=== PATIENT | female | born 1980 | race American Indian/Alaskan Native ===

== ENCOUNTER 2017-05-31 05:05 | Emergency (ER) | payer SELFPAY ==
[2017-05-31 06:13] LABS: Basophils % (Auto) 0.7 % (0.0-1.8); Eosinophils % (Auto) 0.1 % (0.0-4.3); Hematocrit 50.6 % (30.3-42.9); Hemoglobin 17.1 gm/dl (10.1-14.3); Mean Corpuscular HGB Conc 34 % (30-34); Mean Corpuscular Hemoglobin 28 pg (28-32); Mean Corpuscular Volume 84 fl (79-97); Platelet Count 419 K/mm3 (140-440); Red Blood Count 6.02 M/mm3 (3.65-5.03); Red Cell Distribution Width 14.8 % (13.2-15.2); White Blood Count 12.8 K/mm3 (4.5-11.0)
[2017-05-31 06:22] LABS: Alanine Aminotransferase 19 units/L (7-56); Albumin 5.1 g/dL (3.9-5); Albumin/Globulin Ratio 1.1 %; Alkaline Phosphatase 88 units/L (35-129); Anion Gap 25 mmol/L; BUN/Creatinine Ratio 25.55; Blood Urea Nitrogen 23 mg/dL (7-17); Calcium 10.7 mg/dL (8.4-10.2); Carbon Dioxide 26 mmol/L (22-30); Chloride 95.4 mmol/L (98-107); Glucose 110 mg/dL (65-100); Lipase 12 units/L (13-60); Potassium 3.3 mmol/L (3.6-5.0); Sodium 143 mmol/L (137-145); Total Protein 9.7 g/dL (6.3-8.2)
[2017-05-31] MEDS ORDERED: REGLAN IV ONE ×2 (07:06→10:39)
[2017-05-31] MEDS ORDERED: NACL 0.9% 1000 ML 1,000 ML IV ONE ×2 (07:06→07:53)
[2017-05-31 07:11] LABS: Bacteria,Urine 2+ /HPF (Negative); Bilirubin,Urine NEG (Negative); Blood,Urine LG (Negative); Ketones,Urine 20 mg/dL (Negative); Leukocyte Esterase,Urine NEG (Negative); Mucus,Urine 3+ /HPF; Nitrite,Urine NEG (Negative); Urobilinogen,Urine < 2.0 mg/dL (<2.0)
--- NOTE | 2017-05-31 07:13 | Emergency Department Report ---
ED General Adult HPI - General Chief complaint: Abdominal Pain Stated complaint: NAUSEA/VOMITING/STOMACH PAIN Time Seen by Provider: 05/31/17 07:05 Source: patient Mode of arrival: Ambulatory Limitations: No Limitations - History of Present Illness Initial comments: Patient is a 37-year-old female past medical history of colitis. She presents with abdominal pain that has been going on for the last 3 days. Her abdominal pains located in left upper quadrant. She states that it is an 8 out of 10 and radiates to her left flank area and the abdominal pain is associated with nausea and vomiting. She's had about 2 vomiting episodes of vomiting has been nonbloody nonbilious. She states that this upon pains different from the previous of bowel pain she's had before. Patient denies having any dysuria or vaginal discharge. - Related Data Previous Rx's Medication Instructions Recorded Last Taken Type Metoclopramide HCl [Reglan TAB] 5 mg PO Q8HR PRN #15 tablet 05/31/17 Unknown Rx Naproxen [Naprosyn] 375 mg PO BID #20 tablet 05/31/17 Unknown Rx Sulfamethoxazole/Trimethoprim 1 tab PO BID #10 tab 05/31/17 Unknown Rx [Bactrim 400-80 mg] Allergies Allergy/AdvReac Type Severity Reaction Status Date / Time ondansetron HCl Allergy Unknown Verified 05/31/17 05:34 [From Zofran (as hydrochloride)] ED Review of Systems ROS: Stated complaint: NAUSEA/VOMITING/STOMACH PAIN Other details as noted in HPI Constitutional: denies: chills, fever Eyes: denies: eye pain, eye discharge, vision change ENT: denies: ear pain, throat pain Respiratory: denies: cough, shortness of breath, wheezing Cardiovascular: denies: chest pain, palpitations Endocrine: no symptoms reported Gastrointestinal: abdominal pain, nausea, vomiting. denies: diarrhea Genitourinary: denies: urgency, dysuria, discharge Musculoskeletal: denies: back pain, joint swelling, arthralgia Skin: denies: rash, lesions Neurological: denies: headache, weakness, paresthesias Psychiatric: denies: anxiety, depression Hematological/Lymphatic: denies: easy bleeding, easy bruising ED Past Medical Hx - Past Medical History Previous Medical History?: Yes Hx Hypertension: Yes Hx Seizures: Yes Additional medical history: cerebral aneurysm - Surgical History Past Surgical History?: No - Social History Smoking Status: Current Every Day Smoker Substance Use Type: Alcohol - Medications Home Medications: Home Medications Medication Instructions Recorded Confirmed Last Taken Type Metoclopramide HCl [Reglan TAB] 5 mg PO Q8HR PRN #15 tablet 05/31/17 Unknown Rx Naproxen [Naprosyn] 375 mg PO BID #20 tablet 05/31/17 Unknown Rx Sulfamethoxazole/Trimethoprim 1 tab PO BID #10 tab 05/31/17 Unknown Rx [Bactrim 400-80 mg] ED Physical Exam - General Limitations: No Limitations General appearance: alert, in no apparent distress - Head Head exam: Present: atraumatic, normocephalic - Eye Eye exam: Present: normal appearance - ENT ENT exam: Present: mucous membranes moist - Neck Neck exam: Present: normal inspection - Respiratory Respiratory exam: Present: normal lung sounds bilaterally. Absent: respiratory distress - Cardiovascular Cardiovascular Exam: Present: regular rate, normal rhythm. Absent: systolic murmur, diastolic murmur, rubs, gallop - GI/Abdominal GI/Abdominal exam: Present: tenderness - Extremities Exam Extremities exam: Present: normal inspection - Back Exam Back exam: Present: CVA tenderness (L) - Neurological Exam Neurological exam: Present: alert, oriented X3 - Psychiatric Psychiatric exam: Present: normal affect, normal mood - Skin Skin exam: Present: warm, dry, intact, normal color. Absent: rash ED Course Vital Signs 05/31/17 05/31/17 05:35 12:25 Temperature 97.8 F Pulse Rate 117 H 88 Respiratory 16 16 Rate Blood Pressure 160/102 Blood Pressure 142/78 [Left] O2 Sat by Pulse 99 Oximetry - Reevaluation(s) Reevaluation #1: 05/31/17 08:47 Evaluate the patient hold her CT abdomen of her relative for IV analgesic medication. ED Medical Decision Making - Lab Data Result diagrams: 05/31/17 05:44 05/31/17 05:44 Laboratory Results - last 24 hr 05/31/17 05/31/17 05/31/17 05:44 05:44 06:37 WBC 12.8 H RBC 6.02 H Hgb 17.1 H Hct 50.6 H MCV 84 MCH 28 MCHC 34 RDW 14.8 Plt Count 419 Lymph % (Auto) 24.7 [place] % (Auto) 7.2 Eos % (Auto) 0.1 Baso % (Auto) 0.7 Lymph # 3.2 [place] # 0.9 H Eos # 0.0 Baso # 0.1 Seg Neutrophils % 67.3 Seg Neutrophils # 8.6 H Sodium 143 Potassium 3.3 L Chloride 95.4 L Carbon Dioxide 26 Anion Gap 25 BUN 23 H Creatinine 0.9 Estimated GFR > 60 BUN/Creatinine Ratio 25.55 Glucose 110 H Calcium 10.7 H Total Bilirubin 0.60 AST 16 ALT 19 Alkaline Phosphatase 88 Total Protein 9.7 H Albumin 5.1 H Albumin/Globulin Ratio 1.1 Lipase 12 L Urine Color Michelle Urine Turbidity Slightly-cloudy Urine pH 5.0 Ur Specific [place] 1.024 Urine Protein >500 Urine Glucose (UA) 50 Urine Ketones 20 Urine Blood Lg Urine Nitrite Neg Urine Bilirubin Neg Urine Urobilinogen < 2.0 Ur Leukocyte Esterase Neg Urine WBC (Auto) 19.0 H Urine RBC (Auto) 33.0 U Epithel Cells (Auto) 10.0 Urine Bacteria (Auto) 2+ Urine Mucus 3+ - Radiology Data Radiology results: report reviewed, image reviewed CT abdomen: Shows some signs of enteritis and fibroid uterus. - Medical Decision Making Chief medical diagnosis: Pancreatitis Differential medical diagnosis: Cholelithiasis, pyelonephritis, UTI IV MORPHINE, CBC, BMP, IV fluids I'll order CT scan of abdomen and then I'll reassess patient. CT scan shows signs of enteritis and fibroid uterus patient states that her pain is a lot better I will give patient another dose of IV Reglan and I will send patient home with Reglan and naproxen to take. Critical care attestation.: If time is entered above; I have spent that time in minutes in the direct care of this critically ill patient, excluding procedure time. ED Disposition Clinical Impression: Abdominal pain Qualifiers: Abdominal location: left upper quadrant Qualified Code(s): R10.12 - Left upper quadrant pain Urinary tract infection Qualifiers: Urinary tract infection type: acute cystitis Hematuria presence: without hematuria Qualified Code(s): N30.00 - Acute cystitis without hematuria Disposition: TO HOME OR SELFCARE Is pt being admited?: No Does the pt Need Aspirin: No Condition: Stable Instructions: Uterine Fibroids (ED), Abdominal Pain (ED) Prescriptions: Metoclopramide HCl [Reglan TAB] 5 mg PO Q8HR PRN #15 tablet PRN Reason: Nausea Naproxen [Naprosyn] 375 mg PO BID #20 tablet Sulfamethoxazole/Trimethoprim [Bactrim 400-80 mg] 1 tab PO BID #10 tab Referrals: PRIMARY CARE, [Primary Care Provider] - 3-5 Days
[2017-05-31 07:20] LABS: Protein,Urine >500 mg/dL (Negative)
[2017-05-31] MEDS ORDERED: MORPHINE IV ONE (07:52)
[2017-05-31] MEDS ORDERED: NACL ONE (08:22)
--- NOTE | 2017-05-31 08:57 | Cat Scan Report ---
CT scan of abdomen and pelvis with IV contrast: History: Left upper quadrant pain and left flank pain. Findings: Normal lung bases. No pleural pericardial effusion. Normal liver spleen pancreas and gallbladder. Thickening of the antral wall may be related to peptic disease. Normal adrenals, kidneys and bladder. No free intraperitoneal fluid. No evidence of adenopathy. Gaseous colon with small volume stool in colon. No bowel distention. Few fluid filled loops of small bowel without wall thickening or distention. Predominantly seen in the pelvis. Impression: Thickening of the antral wall may related to peptic disease. Fluid filled loops of small bowel are nonspecific and may represent early enteritis. Suspected fibroid uterus.
[2017-05-31 12:25] VITALS: BP 142/78
== END 2017-05-31 12:26 | disposition home or self-care (01) ==
LOC: ED 05:05
DX: N39.0 Urinary tract infection, site not specified (principal); I10 Essential (primary) hypertension; F17.210 Nicotine dependence, cigarettes, uncomplicated; Z88.6 Allergy status to analgesic agent
CPT/HCPCS: 36415; 74177; 80053; 81001; 83690; 85025; 96361; 96374; 96375; 96376; 99284; J2270; J2765; J7030; Q9967

== ENCOUNTER 2021-03-23 06:24 | Emergency (ER) | payer SELFPAY ==
[2021-03-23] MEDS ORDERED: ASPIRIN 325 MG TAB PO ONE (06:46)
--- NOTE | 2021-03-23 08:07 | XRay Report ---
CHEST 2 VIEWS INDICATION: chest pain. COMPARISON: None FINDINGS: Support devices: None. Heart: Within normal limits. Lungs/pleura: The lungs are hyperinflated versus good inspiration. No acute air space or interstitial disease. No pneumothorax. Additional findings: None. IMPRESSION: No acute findings. Mild hyperinflation. Signer Name: Raul Naqvi Jr, MD Signed: 03/23/2021 8:03 AM Workstation Name: [id number]
[2021-03-23 08:16] LABS: Basophils % (Auto) 0.5 % (0.0-1.8); Eosinophils % (Auto) 0.1 % (0.0-4.3); Hematocrit 48.5 % (30.3-42.9); Hemoglobin 16.4 gm/dl (10.1-14.3); Lymphocytes # (Auto) 2.3 K/mm3 (1.2-5.4); Lymphocytes % (Auto) 27.1 % (13.4-35.0); Mean Corpuscular HGB Conc 34 % (30-34); Mean Corpuscular Volume 88 fl (79-97); Monocytes # (Auto) 0.7 K/mm3 (0.0-0.8); Monocytes % (Auto) 8.4 % (0.0-7.3); Platelet Count 394 K/mm3 (140-440); Red Blood Count 5.54 M/mm3 (3.65-5.03)
[2021-03-23 08:31] LABS: Alanine Aminotransferase 17 units/L (7-56); Albumin 5.2 g/dL (3.9-5); Blood Urea Nitrogen 18 mg/dL (7-17); Hemolysis Index 18
[2021-03-23 08:37] LABS: BUN/Creatinine Ratio 30
[2021-03-23 10:31] VITALS: BP 127/91
[2021-03-23] MEDS ORDERED: SODIUM CHLORIDE 0.9% 1000 ML 1,000 ML IV ONE (10:44)
--- NOTE | 2021-03-23 10:44 | Event Note ---
ED Screening Note Date of service: 03/23/21 Time: 10:42 ED Screening Note: 40-year-old female patient with history of cerebral aneurysm, hypertension, and seizure disorder presents to the emergency department with complaints of right- sided headache, right-sided chest pain, and right-sided abdominal pain with associated nausea and vomiting starting 2 days ago. Patient states that headache and vomiting preceded the onset of chest pain. Takes Keppra for seizures but has been unable to keep down any medications. Estimates over 20 episodes of nonbloody emesis in the last 24 hours. Tachycardic in triage. General: Awake, appropriately interactive. Appears uncomfortable. Neck: Supple. Full range of motion intact. Cardiovascular: Normal peripheral perfusion. Pulmonary: No respiratory distress. Patient is speaking normally without use of accessory muscles. Skin: No apparent rashes or lesions. Neurological: Generalized weakness. No facial asymmetry. Speech is clear. Follows commands. Patient is alert and oriented. Musculoskeletal: Moves all four extremities spontaneously with normal range of motion. Psych: Cooperative. Appropriate mood and affect. I have greeted and performed a focused rapid initial assessment of this patient. A comprehensive ED assessment and evaluation of the patient, analysis of all test results, and completion of the medical decision-making process will be conducted by additional ED providers. This initial assessment/diagnostic orders/clinical plan/treatment(s) is/are subject to change based on patients health status, clinical progression and re-assessment. Further treatment and workup at subsequent clinical provider's discretion. Patient/guardian urged not to elope from the ED as their condition may be serious if not clinically assessed and managed.
[2021-03-23] MEDS ORDERED: levETIRAcetam 500 MG/5 ML ORAL LIQD PO ONE (11:50)
[2021-03-23] MEDS ORDERED: amLODIPine 5 MG TAB PO ONE (11:50)
[2021-03-23] MEDS ORDERED: METOCLOPRAMIDE 10 MG TAB PO ONE (11:51)
[2021-03-23] MEDS ORDERED: KETOROLAC 30 MG/1 ML INJ IV ONE (12:18)
--- NOTE | 2021-03-23 12:37 | Emergency Department Report ---
ED Abdominal Pain HPI - General Chief Complaint: Chest Pain Stated Complaint: CHEST PAIN/EMESIS PUI?: No Time Seen by Provider: 03/23/21 11:44 Source: patient Mode of arrival: Ambulatory Limitations: No Limitations - History of Present Illness Initial Comments: Patient is a 40-year-old female that comes to the emergency room today with nausea and vomiting. She states she has vomited so hard it makes her right side hurt. Patient states that she has heavy menses that makes her vomit. She states that she ended up in the ER last month for the same thing. She was at [facility]. They told her she had cyclical vomiting. On arrival patient states that she has had so much vomiting she has not been able to take her Keppra and she is concerned because this is happened in the past and she is had a seizure. She also did not take her blood pressure medicine. Patient states that she is on her menses.. She has cramping. She has no back pain. No dysuria. No vaginal discharge. No fever or chills. Patient denies headache on exam. Patient not actively vomiting on arrival to [facility]. MD Complaint: other -: Gradual, days(s) Location: suprapubic (Which makes her vomit and then she has worsening generalized pain) Radiation: none Migration to: no migration Quality: cramping Consistency: constant Improves With: nothing Worsens With: nothing Associated Symptoms: denies other symptoms, nausea, vomiting. denies: diarrhea, fever, chills, constipation, dysuria, hematemesis, hematochezia, melena, hematuria, anorexia, syncope - Related Data LMP (females 10-50): this week Previous Rx's Medication Instructions Recorded Last Taken Type Metoclopramide HCl [Reglan TAB] 5 mg PO Q8HR PRN #15 tablet 03/23/21 Unknown Rx Sulfamethoxazole/Trimethoprim 1 each PO BID #10 tablet 03/24/21 Unknown Rx [Bactrim DS TAB] Allergies Allergy/AdvReac Type Severity Reaction Status Date / Time ondansetron HCl Allergy Unknown Verified 05/31/17 05:34 [From Zofran (as hydrochloride)] ED Review of Systems ROS: Stated complaint: CHEST PAIN/EMESIS Other details as noted in HPI Comment: All other systems reviewed and negative ED Past Medical Hx - Past Medical History Previous Medical History?: Yes Hx Hypertension: Yes Hx CVA: Yes Hx Heart Attack/AMI: No Hx Congestive Heart Failure: No Hx Diabetes: No Hx Deep Vein Thrombosis: No Hx Pulmonary Embolism: No Hx GERD: Yes Hx Liver Disease: No Hx Renal Disease: No Hx of Cancer: No Hx Sickle Cell Disease: No Hx Arthritis: No Hx Headaches / Migraines: No Hx Seizures: Yes Hx Kidney Stones: No Hx Psychiatric Treatment: No Hx Asthma: No Hx COPD: No Hx Tuberculosis: No Hx Dementia: No Hx HIV: No Additional medical history: cerebral aneurysm. CYCLICAL VOMITING WITH MENSES - Surgical History Past Surgical History?: Yes Additional Surgical History: BREAST REDUCTION - Family History Family history: no significant - Social History Smoking Status: Never Smoker Substance Use Type: Alcohol, Marijuana - Medications Home Medications: Home Medications Medication Instructions Recorded Confirmed Last Taken Type Metoclopramide HCl [Reglan TAB] 5 mg PO Q8HR PRN #15 tablet 03/23/21 Unknown Rx Sulfamethoxazole/Trimethoprim 1 each PO BID #10 tablet 03/24/21 Unknown Rx [Bactrim DS TAB] ED Physical Exam - General Limitations: No Limitations General appearance: alert, in no apparent distress - Head Head exam: Present: atraumatic, normocephalic - Eye Eye exam: Present: normal appearance - ENT ENT exam: Present: mucous membranes moist - Neck Neck exam: Present: normal inspection - Respiratory Respiratory exam: Present: normal lung sounds bilaterally. Absent: respiratory distress - Cardiovascular Cardiovascular Exam: Present: regular rate, normal rhythm. Absent: systolic murmur, diastolic murmur, rubs, gallop - GI/Abdominal GI/Abdominal exam: Present: soft, normal bowel sounds - Extremities Exam Extremities exam: Present: normal inspection - Back Exam Back exam: Present: normal inspection - Neurological Exam Neurological exam: Present: alert, oriented X3 - Psychiatric Psychiatric exam: Present: normal affect, normal mood - Skin Skin exam: Present: warm, dry, intact, normal color. Absent: rash ED Course Vital Signs 03/23/21 03/23/21 03/23/21 06:41 12:00 12:16 Temperature 99.3 F Pulse Rate 107 H Respiratory 18 16 Rate Blood Pressure 127/91 127/91 O2 Sat by Pulse 99 100 Oximetry - Reevaluation(s) Reevaluation #1: ON PROVIDER REEVAL HR 80 ED Medical Decision Making - Lab Data Result diagrams: 03/23/21 07:15 03/23/21 07:12 - EKG Data -: EKG Interpreted by Me EKG shows normal: sinus rhythm Rate: normal - EKG Data When compared to previous EKG there are: no significant change Interpretation: no acute changes - Radiology Data Radiology results: report reviewed, image reviewed NAP - Medical Decision Making Vital Signs 03/23/21 03/23/21 03/23/21 06:41 12:00 12:16 Temperature 99.3 F Pulse Rate 107 H Respiratory 18 16 Rate Blood Pressure 127/91 127/91 O2 Sat by Pulse 99 100 Oximetry Labs 03/23/21 03/23/21 03/23/21 07:12 07:15 07:40 WBC 8.5 RBC 5.54 H Hgb 16.4 H Hct 48.5 H MCV 88 MCH 30 MCHC 34 RDW 14.0 Plt Count 394 Lymph % (Auto) 27.1 [place] % (Auto) 8.4 H Eos % (Auto) 0.1 Baso % (Auto) 0.5 Lymph # (Auto) 2.3 [place] # (Auto) 0.7 Eos # (Auto) 0.0 Baso # (Auto) 0.0 Seg Neutrophils % 63.9 Seg Neutrophils # 5.5 Sodium 138 Potassium 3.5 L Chloride 96.6 L Carbon Dioxide 23 Anion Gap 22 BUN 18 H Creatinine 0.6 Estimated GFR > 60 BUN/Creatinine Ratio 30 Glucose 85 Calcium 10.0 Magnesium Total Bilirubin 1.10 AST 18 ALT 17 Alkaline Phosphatase 90 Troponin T < 0.010 Total Protein 8.9 H Albumin 5.2 H Albumin/Globulin Ratio 1.4 Lipase 15 03/23/21 03/23/21 10:50 10:50 WBC RBC Hgb Hct MCV MCH MCHC RDW Plt Count Lymph % (Auto) [place] % (Auto) Eos % (Auto) Baso % (Auto) Lymph # (Auto) [place] # (Auto) Eos # (Auto) Baso # (Auto) Seg Neutrophils % Seg Neutrophils # Sodium Potassium Chloride Carbon Dioxide Anion Gap BUN Creatinine Estimated GFR BUN/Creatinine Ratio Glucose Calcium Magnesium 2.20 Total Bilirubin AST ALT Alkaline Phosphatase Troponin T < 0.010 Total Protein Albumin Albumin/Globulin Ratio Lipase Labs noted. HCG neg hgb stable Electrolytes replaced. Troponin negative. Normal saline for hydration. Reglan and Haldol for nausea. Case staffed with Dr. Braden At 1700 patient was wanting to leave. She was sitting on the side of the stretcher. She was taking p.o. She reported feeling much better. She actually looks much better on clinical exam. Vital signs remain normal. Patient has a UA pending at the time of discharge but she has refused to wait for the results. 6-4 UA NOTED- I'VE CALLED PT AT [phone] SHE REPORTS FEELING 100% BETTER TO TREAT HER UTI I'VE CALLED IN BACTRIM X 5 DAYS TO HER PHARM [facility] [address] IN [place] SHE WILL GO GET IT ON THE WAY HOME TODAY PT APPRECIATIVE OF FOLLOW UP. - Differential Diagnosis ro preg/choleylith/ cyclical vomiting Critical care attestation.: If time is entered above; I have spent that time in minutes in the direct care of this critically ill patient, excluding procedure time. ED Disposition Clinical Impression: Cyclical vomiting, Menstrual pain, Hypokalemia, UTI (urinary tract infection) Disposition: TO HOME OR SELFCARE Is pt being admited?: No Does the pt Need Aspirin: No Condition: Stable Instructions: Nausea and Vomiting, Adult Prescriptions: Metoclopramide HCl [Reglan TAB] 5 mg PO Q8HR PRN #15 tablet PRN Reason: Nausea Referrals: RICCARDO LORENZO MD [Staff Physician] - 3-5 Days DAKOTA AHMADI MD [Staff Physician] - 3-5 Days Forms: Work/School Release Form(ED) Time of Disposition: 14:15
[2021-03-23] MEDS ORDERED: POTASSIUM CHLORIDE ER 20 MEQ TAB PO ONE (13:07)
[2021-03-23] MEDS ORDERED: HALOPERIDOL LACTATE 5 MG/1 ML INJ IV ONE (15:09)
[2021-03-23 17:42] LABS: Bacteria,Urine 4+ /HPF (Negative); Bilirubin,Urine NEG (Negative); Blood,Urine LG (Negative); Color,Urine Amber (Yellow); Mucus,Urine 3+ /HPF; Urobilinogen,Urine < 2.0 mg/dL (<2.0)
[2021-03-23 17:50] LABS: Protein,Urine >500 mg/dL (Negative)
[2021-03-23 17:56] LABS: HCG Qualitative,Urine Negative (Negative)
--- NOTE | 2021-03-24 10:06 | Electrocardiograph Report ---
[facility] Test Date: 2021-03-23 Test Time: 06:35:57 Pat Name: MEKHI MARKHAM Department: Room: Gender: F Art Supervisor: AISLINN : 1980 Requested By: ED DOC Order Number: [id number] Reading MD: Mitesh Pascual Measurements Intervals [place] Rate: 107 P: 0 IA: 61 QRS: 76 QRSD: 56 T: 62 QT: 334 QTc: 446 Interpretive Statements Sinus tachycardia/low atrial tachycardia Consider left ventricular hypertrophy No previous ECG available for comparison Electronically Signed On 03-24-2021 10:06:33 EDT by Mitesh Pascual
== END 2021-03-23 16:46 | disposition home or self-care (01) ==
LOC: ED 06:24
DX: R11.15 Cyclical vomiting syndrome unrelated to migraine (principal); N94.6 Dysmenorrhea, unspecified; E87.6 Hypokalemia; N39.0 Urinary tract infection, site not specified; I10 Essential (primary) hypertension; K21.9 Gastro-esophageal reflux disease without esophagitis; F12.90 Cannabis use, unspecified, uncomplicated; Z86.69 Personal history of other diseases of the nervous system and sense organs; Z72.89 Other problems related to lifestyle; Z88.8 Allergy status to other drugs, medicaments and biological substances; Z79.899 Other long term (current) drug therapy
CPT/HCPCS: 36415; 71046; 80053; 81001; 81025; 83690; 83735; 84484; 85025; 87076; 87086; 87186; 93005; 96361; 96374; 96375; 99284; J1630; J1885; J7030